=== PATIENT | female | born 1975 | race Caucasian/White ===

== ENCOUNTER 2016-11-29 01:07 | Emergency (ER) | payer OTHER ==
[~2016-11-29] VITALS: Ht 170.2 cm; Wt 72.7 kg
[~2016-11-29 01:07] MED LIST: ASPI81TA3 PO; CARV12.52 PO; DIGO125T73 PO; DIPH25CA6 PO; ENOX60DI7 SUBQ; HYDR-4003 PO; LIP40 PO; LOSA50TA3 PO; NITR0.4T38 SL; ONDA4TAB12 PO; RIVA10TA PO; TORS20TA3 PO
[2016-11-29 01:09] VITALS: BP 138/79; PULSE 106; RESP 24; O2SAT 99
[2016-11-29] MEDS ORDERED: HYDROcodone-APAP 10-325 mg PO ONE (01:50)
[2016-11-29] MEDS ORDERED: Ondansetron 8 mg ODT Tablet PO ONE (01:50)
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
[2016-11-29] MEDS ORDERED: _oxyCODONE/APAP 5-325 mg Tablet PO PRN (03:20)
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
== END 2016-11-29 03:40 | disposition home or self-care (01) ==
LOC: SED 01:07
DX: M79.641 Pain in right hand (principal); R42 Dizziness and giddiness; R41.0 Disorientation, unspecified; Y04.2XXA Assault by strike against or bumped into by another person, initial encounter; Y93.89 Activity, other specified; Y99.8 Other external cause status; Y92.008 Other place in unspecified non-institutional (private) residence as the place of occurrence of the external cause; J45.909 Unspecified asthma, uncomplicated; I50.9 Heart failure, unspecified; I25.10 Atherosclerotic heart disease of native coronary artery without angina pectoris; E78.5 Hyperlipidemia, unspecified; F17.200 Nicotine dependence, unspecified, uncomplicated; Z86.2 Personal history of diseases of the blood and blood-forming organs and certain disorders involving the immune mechanism; Z86.79 Personal history of other diseases of the circulatory system; Z86.711 Personal history of pulmonary embolism; Z86.718 Personal history of other venous thrombosis and embolism; Z87.81 Personal history of (healed) traumatic fracture; Z95.0 Presence of cardiac pacemaker; Z79.82 Long term (current) use of aspirin; Z79.01 Long term (current) use of anticoagulants; Z88.0 Allergy status to penicillin; Z88.8 Allergy status to other drugs, medicaments and biological substances